=== PATIENT | female | born 1990 | race American Indian/Alaskan Native ===

== ENCOUNTER 2017-07-15 07:31 | Emergency (ER) | payer SELFPAY ==
[2017-07-15 07:43] VITALS: BP 116/68
[2017-07-15] MEDS ORDERED: Sodium Chloride 0.9% 10 ML Syringe FLUSH PRN (07:53)
[2017-07-15] MEDS ORDERED: Famotidine 20 MG/2 ML SDV IVPUSH ONE (07:56)
[2017-07-15] MEDS ORDERED: Sodium Chloride 0.9% 1,000 ML IV SCH ×2 (08:00→09:45)
[2017-07-15] MEDS ORDERED: Ondansetron 4 MG/2 ML SDV IVPUSH ONE (08:06)
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
[2017-07-15] MEDS ORDERED: Potassium Chloride 10 MEQ in Premix Bag 1 BAG IV ONE (10:32)
== END 2017-07-15 14:12 | disposition home or self-care (01) ==
LOC: JD.ED 07:31
DX: K29.00 Acute gastritis without bleeding (principal); F10.920 Alcohol use, unspecified with intoxication, uncomplicated; E87.6 Hypokalemia; F17.210 Nicotine dependence, cigarettes, uncomplicated; F32.9 Major depressive disorder, single episode, unspecified; Z79.899 Other long term (current) drug therapy; Y90.0 Blood alcohol level of less than 20 mg/100 ml
CPT/HCPCS: 36415; 80053; 80306; 83690; 85025; 96361; 96365; 96366; 96375; 99284; G0480; J2405; J3480; J7040; J7050

== ENCOUNTER 2019-01-14 03:41 | Emergency (ER) | payer OTHER ==
[2019-01-14 03:55] VITALS: BP 130/70
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
== END 2019-01-14 04:35 | disposition home or self-care (01) ==
LOC: JD.ED 03:41
DX: S64.490A Injury of digital nerve of right index finger, initial encounter (principal); S64.492A Injury of digital nerve of right middle finger, initial encounter; S64.494A Injury of digital nerve of right ring finger, initial encounter; S64.31XA Injury of digital nerve of right thumb, initial encounter; W51.XXXA Accidental striking against or bumped into by another person, initial encounter; E66.9 Obesity, unspecified
CPT/HCPCS: 99283

== ENCOUNTER 2020-03-25 15:46 | Emergency (ER) | payer OTHER ==
[2020-03-25] MEDS ORDERED: Acetaminophen 325 MG Tab PO ONE (16:18)
[2020-03-25] MEDS ORDERED: Pantoprazole 40 MG Vial IVPUSH ONE (16:21)
--- NOTE | 2020-03-25 16:23 | EDM.PDOC ---
ED HPI GENERAL MEDICAL PROBLEM - General Chief Complaint: Gastrointestinal Problem Stated Complaint: [facility] Time Seen by Provider: 03/25/20 16:17 Source of Information: Reports: Patient History Limitations: Reports: No Limitations - History of Present Illness INITIAL COMMENTS - FREE TEXT/NARRATIVE: 29-year-old female of [place] ancestry presents to the ED for evaluation of fever reportedly 103 degrees at home. She is recorded temperature here at 36.9 but she does in fact feel warm to palpation to me to. She states she has been having intermittent vomiting today that does contain some bright red blood. Small quantities no clots. She has been having diarrhea for the last 3 to 4 days and she is noted blood in the stool intermittently. Of note she is a chronic alcoholic drinking 10-14 drinks per day. She drinks something called "Joose" apparently contains 14% alcohol. He is a combination energy drink with alcohol. At present she reports that she is actually hungry. Not taking any medications for fever or headache. Denies any cough or sputum production. She denies any urinary frequency or urgency. She denies any possibility of . She denies being sexually active as of recent. Denies any abdominal pain. Denies vaginal discharge. Onset: Today (Fever started today. Diarrhea is been present for the last 4 days. Intermittent nausea and vomiting x2 days.) Onset Date: 03/23/20 Duration: Day(s):, Intermittent, Waxing/Waning Location: Reports: Abdomen (Recurrent intermittent nausea vomiting containing some bright red blood as well as some diarrhea stools can apparently containing some blood) Quality: Reports: Other (Fever starting last night.) Severity: Moderate Improves with: Reports: None Worsens with: Reports: None, Other (Make the) Context: Denies: Activity ( symptoms any better or worse.), Exercise, Lifting, Sick Contact, Trauma, Other Associated Symptoms: Reports: Fever/Chills (Poorly fever 103 degrees at home.), Malaise, Nausea/Vomiting (With some pain that), Other. Denies: Confusion, Chest Pain, Cough, cough w sputum, Diaphoresis (Feels very hungry at present.), Rash ( emesis), Seizure, Shortness of Breath, Weakness Treatments CLINICAL REHABILITATION SPECIALIST: Reports: Other (see below) (None.) Abdomen Pain Score (Numeric/FACES): 0 - Related Data Allergies Allergy/AdvReac Type Severity Reaction Status Date / Time No Known Allergies Allergy Verified 04/28/19 08:34 Home Meds: Home Meds Omeprazole 20 mg PO DAILY #42 tablet. 03/25/20 [Rx] Past Medical History Gastrointestinal History: Reports: Cirrhosis, GERD, GI Bleed [employer] History: Reports: Musculoskeletal History: Reports: Fracture Psychiatric History: Reports: Anxiety, Depression Endocrine/Metabolic History: Reports: Obesity/BMI 30+ Oncologic (Cancer) History: Reports: Cervix Dermatologic History: Reports: Other (See Below) Other Dermatologic History: Has multiple self inflicted healed cuts over entire body - Infectious Disease History Infectious Disease History: Reports: Hepatitis C - Past Surgical History Female Surgical History: Reports: D&C Social & Family History - Family History Family Medical History: Noncontributory - Tobacco Use Smoking Status *Q: Current Every Day Smoker Years of Tobacco use: 15 Packs/Tins Daily: 1 - Caffeine Use Caffeine Use: Reports: Coffee, Soda - Alcohol Use Days Per Week of Alcohol Use: 7 Number of Drinks Per Day: 6 Total Drinks Per Week: 42 - Recreational Drug Use Recreational Drug Use: Yes Drug Use in Last 12 Months: Yes Recreational Drug Type: Reports: Methamphetamine Other Recreational Drug Type: 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 Denies: Fever, Chills, Malaise, Weakness HEENT: Reports: No Symptoms Respiratory: Reports: No Symptoms Cardiovascular: Reports: No Symptoms Endocrine: Reports: No Symptoms GI/Abdominal: Reports: Diarrhea (2-3 diarrhea stools per day x3 days), Hematemesis, Hematochezia, Nausea, Vomiting : Reports: Frequency. Denies: Dysuria, Flank Pain Musculoskeletal: Reports: No Symptoms Skin: Reports: No Symptoms Neurological: Reports: No Symptoms. Denies: Confusion, Dizziness, Headache, Numbness, Paresthesia, Pre-Existing Deficit, Syncope, Tingling, Tremors, Trouble Speaking, Difficulty Walking, Weakness Psychiatric: Reports: No Symptoms Hematologic/Lymphatic: Reports: No Symptoms ED EXAM, GI/ABD - Physical Exam Exam: See Below Exam Limited By: No Limitations General Appearance: Alert, WD/WN, No Apparent Distress, Other (He does feel warm to palpation. She states she is burning up. Temperature is 36.9 by nurses recording. Heart rate was 105 at the bedside. Respiratory is 18 with O2 sats of 97% on room air BP 119/61.) Eyes: Bilateral: Normal Appearance (There is no blepharal pallor or scleral icterus.) Throat/Mouth: Normal Inspection, Normal Lips, Normal Oropharynx, Other (Mouth and tongue appear moist.) Head: Atraumatic, Normocephalic Neck: Normal Inspection, Supple, Non-Tender, Full Range of Motion. No: Lymphadenopathy (L), Lymphadenopathy (R) Respiratory/Chest: No Respiratory Distress, Lungs Clear, Normal Breath Sounds, No Accessory Muscle Use, Chest Non-Tender Cardiovascular: Normal Peripheral Pulses, No Edema, No Gallop, No Murmur, No Rub , Tachycardia (Tachycardia 105) GI/Abdominal Exam: Normal Bowel Sounds, Soft, Non-Tender, No Organomegaly, No Abnormal Bruit, No Mass, Pelvis Stable, Other (Moderately obese.). No: Guarding , Rigid, Rebound, Tender Back Exam: Normal Inspection, Full Range of Motion. No: CVA Tenderness (L), CVA Tenderness (R) Extremities: Normal Inspection, Normal Range of Motion, Non-Tender, No Pedal Edema Neurological: Alert, Oriented, CN II-XII Intact, Normal Cognition, Normal Reflexes, No Motor/Sensory Deficits Psychiatric: Normal Affect, Normal Mood Skin Exam: Warm, Dry, Intact, Normal Color, No Rash Course - Vital Signs Last Recorded V/S: Last Vital Signs Temp 37.8 C 03/25/20 18:06 Pulse 105 H 03/25/20 15:48 Resp 18 03/25/20 15:48 BP 119/61 03/25/20 15:48 Pulse Ox 97 03/25/20 15:48 - Orders/Labs/Meds Orders: Active Orders 24 hr Category Date Time Status Chest 1V Frontal [CR] Stat Exams 03/25/20 16:19 Taken CULTURE BLOOD [BC] Stat Lab 03/25/20 16:48 Received CULTURE BLOOD [BC] Stat Lab 03/25/20 17:10 Received Dextrose 5%-Lactated Ringers 1,000 ml Med 03/25/20 16:30 Active IV ASDIRECTED Blood Culture x2 Reflex Set [OM.PC] Stat Oth 03/25/20 16:20 Ordered Medication Orders Dextrose/Lactated Ringer's (Dextrose 5%-Lactated Ringers) 1,000 mls @ 999 mls/ hr IV ASDIRECTED UZAIR Last Admin: 03/25/20 16:41 Dose: 999 mls/hr Labs: Laboratory Tests 03/25/20 03/25/20 03/25/20 Range/Units 17:10 17:10 17:10 WBC 6.70 (3.98-10.04) K/mm3 RBC 4.14 (3.98-5.22) M/mm3 Hgb 11.4 (11.2-15.7) gm/dl Hct 36.6 (34.1-44.9) % MCV 88.4 D (79.4-94.8) fl MCH 27.5 (25.6-32.2) pg MCHC 31.1 L (32.2-35.5) g/dl RDW Std Deviation 56.6 H (36.4-46.3) fL Plt Count 375 H D (182-369) K/mm3 MPV 9.3 L (9.4-12.3) fl Neutrophils % (Manual) 46 (40-60) % Band Neutrophils % 0 (0-10) % Lymphocytes % (Manual) 48 H (20-40) % Atypical Lymphs % 0 % Monocytes % (Manual) 4 (2-10) % Eosinophils % (Manual) 2 (0.7-5.8) % Basophils % (Manual) 0 L (0.1-1.2) Platelet Estimate Adequate RBC Morph Comment Normal PT 10.2 (9.7-12.0) SECONDS INR 0.93 APTT (22-31) SECONDS Sodium 144 (136-145) mEq/L Potassium 3.7 (3.5-5.1) mEq/L Chloride 111 H (98-107) mEq/L Carbon Dioxide 22 (21-32) mEq/L Anion Gap 14.7 (5-15) BUN 14 (7-18) mg/dL Creatinine 0.7 (0.55-1.02) mg/dL Est Cr Clr Drug Dosing 119.62 mL/min Estimated GFR (MDRD) > 60 (>60) mL/min BUN/Creatinine Ratio 20.0 H (14-18) Glucose 100 (74-106) mg/dL Lactic Acid (0.4-2.0) mmol/L Calcium 7.4 L (8.5-10.1) mg/dL Magnesium 1.8 (1.8-2.4) mg/dl Total Bilirubin 0.1 L (0.2-1.0) mg/dL GGT 78 H (5-55) U/L AST 101 H (15-37) U/L ALT 109 H (14-59) U/L Alkaline Phosphatase 85 (46-116) U/L C-Reactive Protein <0.2 (<1.0) mg/dL Total Protein 7.3 (6.4-8.2) g/dl Albumin 3.1 L (3.4-5.0) g/dl Globulin 4.2 gm/dL Albumin/Globulin Ratio 0.7 L (1-2) HCG, Qual (NEGATIVE) Urine Color (Yellow) Urine Appearance (Clear) Urine pH (5.0-8.0) Ur Specific [place] (1.005-1.030) Urine Protein (Negative) Urine Glucose (UA) (Negative) Urine Ketones (Negative) Urine Occult Blood (Negative) Urine Nitrite (Negative) Urine Bilirubin (Negative) Urine Urobilinogen (0.2-1.0) Ur Leukocyte Esterase (Negative) Urine RBC (0-5) /hpf Urine WBC (0-5) /hpf Ur Squamous Epith Cells (0-5) /hpf Urine Bacteria (FEW) /hpf Urine Mucus (FEW) /hpf Ethyl Alcohol 0.32 (0.00) gm% Blood Type Gel Antibody Screen 03/25/20 03/25/20 03/25/20 Range/Units 17:10 17:10 17:10 WBC (3.98-10.04) K/mm3 RBC (3.98-5.22) M/mm3 Hgb (11.2-15.7) gm/dl Hct (34.1-44.9) % MCV (79.4-94.8) fl MCH (25.6-32.2) pg MCHC (32.2-35.5) g/dl RDW Std Deviation (36.4-46.3) fL Plt Count (182-369) K/mm3 MPV (9.4-12.3) fl Neutrophils % (Manual) (40-60) % Band Neutrophils % (0-10) % Lymphocytes % (Manual) (20-40) % Atypical Lymphs % % Monocytes % (Manual) (2-10) % Eosinophils % (Manual) (0.7-5.8) % Basophils % (Manual) (0.1-1.2) Platelet Estimate RBC Morph Comment PT (9.7-12.0) SECONDS INR APTT 25 (22-31) SECONDS Sodium (136-145) mEq/L Potassium (3.5-5.1) mEq/L Chloride (98-107) mEq/L Carbon Dioxide (21-32) mEq/L Anion Gap (5-15) BUN (7-18) mg/dL Creatinine (0.55-1.02) mg/dL Est Cr Clr Drug Dosing mL/min Estimated GFR (MDRD) (>60) mL/min BUN/Creatinine Ratio (14-18) Glucose (74-106) mg/dL Lactic Acid (0.4-2.0) mmol/L Calcium (8.5-10.1) mg/dL Magnesium (1.8-2.4) mg/dl Total Bilirubin (0.2-1.0) mg/dL GGT (5-55) U/L AST (15-37) U/L ALT (14-59) U/L Alkaline Phosphatase (46-116) U/L C-Reactive Protein (<1.0) mg/dL Total Protein (6.4-8.2) g/dl Albumin (3.4-5.0) g/dl Globulin gm/dL Albumin/Globulin Ratio (1-2) HCG, Qual Negative (NEGATIVE) Urine Color (Yellow) Urine Appearance (Clear) Urine pH (5.0-8.0) Ur Specific [place] (1.005-1.030) Urine Protein (Negative) Urine Glucose (UA) (Negative) Urine Ketones (Negative) Urine Occult Blood (Negative) Urine Nitrite (Negative) Urine Bilirubin (Negative) Urine Urobilinogen (0.2-1.0) Ur Leukocyte Esterase (Negative) Urine RBC (0-5) /hpf Urine WBC (0-5) /hpf Ur Squamous Epith Cells (0-5) /hpf Urine Bacteria (FEW) /hpf Urine Mucus (FEW) /hpf Ethyl Alcohol (0.00) gm% Blood Type A POSITIVE Gel Antibody Screen Negative 03/25/20 03/25/20 Range/Units 17:10 18:25 WBC (3.98-10.04) K/mm3 RBC (3.98-5.22) M/mm3 Hgb (11.2-15.7) gm/dl Hct (34.1-44.9) % MCV (79.4-94.8) fl MCH (25.6-32.2) pg MCHC (32.2-35.5) g/dl RDW Std Deviation (36.4-46.3) fL Plt Count (182-369) K/mm3 MPV (9.4-12.3) fl Neutrophils % (Manual) (40-60) % Band Neutrophils % (0-10) % Lymphocytes % (Manual) (20-40) % Atypical Lymphs % % Monocytes % (Manual) (2-10) % Eosinophils % (Manual) (0.7-5.8) % Basophils % (Manual) (0.1-1.2) Platelet Estimate RBC Morph Comment PT (9.7-12.0) SECONDS INR APTT (22-31) SECONDS Sodium (136-145) mEq/L Potassium (3.5-5.1) mEq/L Chloride (98-107) mEq/L Carbon Dioxide (21-32) mEq/L Anion Gap (5-15) BUN (7-18) mg/dL Creatinine (0.55-1.02) mg/dL Est Cr Clr Drug Dosing mL/min Estimated GFR (MDRD) (>60) mL/min BUN/Creatinine Ratio (14-18) Glucose (74-106) mg/dL Lactic Acid 1.2 (0.4-2.0) mmol/L Calcium (8.5-10.1) mg/dL Magnesium (1.8-2.4) mg/dl Total Bilirubin (0.2-1.0) mg/dL GGT (5-55) U/L AST (15-37) U/L ALT (14-59) U/L Alkaline Phosphatase (46-116) U/L C-Reactive Protein (<1.0) mg/dL Total Protein (6.4-8.2) g/dl Albumin (3.4-5.0) g/dl Globulin gm/dL Albumin/Globulin Ratio (1-2) HCG, Qual (NEGATIVE) Urine Color Yellow (Yellow) Urine Appearance Clear (Clear) Urine pH 6.0 (5.0-8.0) Ur Specific [place] > or = 1.030 (1.005-1.030) Urine Protein Negative (Negative) Urine Glucose (UA) Negative (Negative) Urine Ketones Negative (Negative) Urine Occult Blood Negative (Negative) Urine Nitrite Negative (Negative) Urine Bilirubin Negative (Negative) Urine Urobilinogen 0.2 (0.2-1.0) Ur Leukocyte Esterase Negative (Negative) Urine RBC 0-5 (0-5) /hpf Urine WBC Not seen (0-5) /hpf Ur Squamous Epith Cells 0-5 (0-5) /hpf Urine Bacteria Few (FEW) /hpf Urine Mucus Moderate H (FEW) /hpf Ethyl Alcohol (0.00) gm% Blood Type Gel Antibody Screen Meds: Medications Generic Name Dose Route Start Last Admin Trade Name Freq PRN Reason Stop Dose Admin Dextrose/Lactated Ringer's 1,000 mls @ 999 mls/hr 03/25/20 16:30 03/25/20 16: 41 Dextrose 5%-Lactated Ringers IV 999 mls/hr ASDIRECTED UZAIR Administration Discontinued Medications Generic Name Dose Route Start Last Admin Trade Name Freq PRN Reason Stop Dose Admin Acetaminophen 975 mg 03/25/20 16:18 03/25/20 16:42 Tylenol PO 03/25/20 16:19 975 mg NOW ONE Administration Metoclopramide HCl 10 mg 03/25/20 16:17 03/25/20 17:25 Reglan IVPUSH 03/25/20 16:18 Not Given ONETIME ONE Pantoprazole Sodium 80 mg 03/25/20 16:21 03/25/20 16:42 Protonix Iv IVPUSH 03/25/20 16:22 80 mg BOLUS ONE Administration - Radiology Interpretation Free Text/Narrative:: 29-year-old female [place] ancestry apparently came to the ED per [facility]. Her complaint there was that she was vomiting up blood and having blood in her diarrhea stools for the last 2 to 3 days. She states she lives here in [place]. She was up in [facility] for the weekend with family members. [place] Claims that she has had a fever of 103 degrees overnight. No chills or Reiger's however. Denies cough or sputum production or genitourinary complaints. Almost immediately after I have after I examined her she is asking for food. She states she feels well very hungry. I suspect that many of her symptoms therefore are fictitious and that she is malingering. She does drink alcohol on a daily basis to a large amount as she appears to be not intoxicated at this time. Clinically she does not appear to be anemic.. Plan Tylenol 9 7 5 mg p.o. Will be given ice chips to eat. Reglan 10 mg IV to arrest any further nausea or vomiting. Protonix 80 mg IV bolus as I suspect she may have an alcohol induced gastritis. Routine labs and type and screen will be done. Urinalysis when 1 becomes available. test will also be done. Blood cultures x2 were ordered. - Re-Assessments/Exams Free Text/Narrative Re-Assessment/Exam: 03/25/20 17:20 x-ray done portably is within normal limits although it is a poor inspirational film. No cardiomegaly visualized lungs are clear. 03/25/20 17:44 White count is 6.70 differential pending. Hemoglobin is 11.4 with hematocrit of 36.6. MCV is normal at 88.6. Platelet count is 375,000. 03/25/20 17:56 Qualitative hCG is negative. PT is 10.2 with an INR of 0.93 PTT is 25. 03/25/20 18:13 White blood cell differential shows 46% neutrophils and 48% lymphocytes a right shift suggesting possible viral infection. The chemistry shows a sodium of 144 and potassium of 3.7. Chloride is 111 with a bicarb of 22. Anion gap is 14.7. BUN is 14 with a creatinine of 0.7. GFR is greater than 60. Glucose is 100 lactic acid is 1.2. Calcium is 7.4. Low because she is not been eating. Magnesium is 1.8 bilirubin is 0.1 GGT is slightly elevated at 78. AST is 101 ALT is 109 likely elevated due to chronic alcohol use. Alk phosphatase is normal at 85. C-reactive protein is less than 0.2. Total protein is 7.3. Blood alcohol is 0.32 g% 03/25/20 19:16 urinalysis is completely normal with no signs of infection. Blood type is a positive I suspect that she may well have an alcohol induced gastritis and possibly is vomiting up small quantities of blood but is stable otherwise. She will be discharged with the advice to stop drinking alcohol. She should take Prilosec 20 mg once daily to protect her stomach lining as I suspect she will likely continue to drink. Departure - Departure Time of Disposition: 19:17 Disposition: Home, Self-Care 01 Condition: Fair Clinical Impression: Acute erosive gastritis Acute alcohol intoxication Qualifiers: Complication of substance-induced condition: uncomplicated Qualified Code(s): F10.920 - Alcohol use, unspecified with intoxication, uncomplicated - Discharge Information *PRESCRIPTION DRUG MONITORING PROGRAM REVIEWED*: Not Applicable *COPY OF PRESCRIPTION DRUG MONITORING REPORT IN PATIENT TAMY: Not Applicable Prescriptions: Omeprazole 20 mg PO DAILY #42 tablet. Referrals: PCP,None [Primary Care Provider] - Forms: ED Department Discharge Additional Instructions: Evaluation in the emergency room today in regards to recurrent vomiting that did contain some blood according to you as well as some blood noticed in diarrhea stool over the last day or so. You do admit that you do drink alcohol on a daily basis and sometimes to excess. Vital signs remained stable while you were in the emergency room. You did receive intravenous dose of Protonix 80 mg IV to stabilize any bleeding from the stomach lining. Lab test proved to be completely normal with no significant blood loss or other abnormalities. No signs of infection were identified on chest x-ray or urinalysis. Fever was identified while you were in the hospital though you felt hot and flushed. The cause of the blood in the vomiting is secondary to alcohol induced erosive gastritis or lining of the stomach inflammation from alcohol. This is self- limited and usually will stop on its own as long as the vomiting stops. It is therefore issa to consider discontinuing use of alcohol or at least cutting back tremendously to allow the stomach lining to heal. Similarly blood in the stool is secondary to alcohol use. Just use of omeprazole or Prilosec 20 mg once daily which you can buy at [employer] as it is [id number] which will allow the stomach lining to heal and prevent any further bleeding from the stomach lining. Of course if bleeding persists with vomiting or in the stool longer than 2 days that you need to return to the ED. Sepsis Event Note - Evaluation Sepsis Screening Result: Possible Sepsis Risk - Focused Exam Vital Signs: Vital Signs Temp Pulse Resp BP Pulse Ox 03/25/20 18:06 37.8 C 03/25/20 15:48 36.9 C 105 H 18 119/61 97 Date Exam was Performed: 03/25/20 Time Exam was Performed: 19:16 - My Orders Last 24 Hours: My Active Orders 03/25/20 16:19 Chest 1V Frontal [CR] Stat 03/25/20 16:20 Blood Culture x2 Reflex Set [OM.PC] Stat 03/25/20 16:30 Dextrose 5%-Lactated Ringers 1,000 ml IV ASDIRECTED 03/25/20 16:48 CULTURE BLOOD [BC] Stat 03/25/20 17:10 CULTURE BLOOD [BC] Stat - Assessment/Plan Last 24 Hours: My Active Orders 03/25/20 16:19 Chest 1V Frontal [CR] Stat 03/25/20 16:20 Blood Culture x2 Reflex Set [OM.PC] Stat 03/25/20 16:30 Dextrose 5%-Lactated Ringers 1,000 ml IV ASDIRECTED 03/25/20 16:48 CULTURE BLOOD [BC] Stat 03/25/20 17:10 CULTURE BLOOD [BC] Stat
[2020-03-25] MEDS ORDERED: Dextrose 5%-Lactated Ringers 1,000 ML IV SCH (16:30)
[2020-03-25] MEDS: Metoclopramide 10 MG/2 ML SDV IVPUSH ONE ×2 (16:42→17:25)
[2020-03-25 19:48] VITALS: BP 135/83; PULSE 100
--- NOTE | 2020-03-26 07:11 | CR ---
Chest: Portable view of the chest was obtained. Comparison: No prior chest imaging is available. Heart size and mediastinum are normal. Lungs are clear with no acute parenchymal change. Bony structures are grossly intact. Impression: 1. Nothing acute is appreciated on portable chest x-ray. Diagnostic code #1 This report was dictated in MDT
== END 2020-03-25 19:45 | disposition home or self-care (01) ==
LOC: JD.ED 15:46
DX: K29.00 Acute gastritis without bleeding (principal); F10.120 Alcohol abuse with intoxication, uncomplicated; K21.9 Gastro-esophageal reflux disease without esophagitis; E66.9 Obesity, unspecified; F17.210 Nicotine dependence, cigarettes, uncomplicated; Z68.31 Body mass index [BMI] 31.0-31.9, adult; Z79.899 Other long term (current) drug therapy
CPT/HCPCS: 36415; 71045; 80053; 80307; 81001; 82977; 83605; 83735; 84703; 85007; 85027; 85610; 85730; 86140; 86850; 86900; 86901; 87040; 96361; 96374; 99284; A9270; C9113; J7121; J2765

== ENCOUNTER 2021-12-28 20:22 | Emergency (ER) | payer SELFPAY ==
[2021-12-28 20:32] VITALS: BP 101/89; PULSE 98
== END 2021-12-28 22:50 ==
LOC: JD.ED 20:22
DX: R07.0 Pain in throat (principal); R49.0 Dysphonia; E66.9 Obesity, unspecified; Z91.040 Latex allergy status; Z68.31 Body mass index [BMI] 31.0-31.9, adult
CPT/HCPCS: 36415; 80053; 80307; 85025; 99285